=== PATIENT | female | born 1965 | race Caucasian/White ===

== ENCOUNTER 2023-11-14 20:35 | Emergency (ER) | payer MEDICAID ==
[~2023-11-14] VITALS: Ht 162.6 cm; Wt 98.1 kg
[2023-11-14] MEDS ORDERED: KETOROLAC TROMETH 30 MG/ML 1ML VIAL IM ONE (23:15)
[2023-11-14 23:31] VITALS: BP 169/88; PULSE 88; RESP 18; TEMP 97.9; O2SAT 98
[2023-11-14] MEDS: DexAMETHasone SOD PHOS 10MG/1ML VIAL INJ IM ONE (23:35)
[2023-11-14] MEDS: KETOROLAC TROMETH 30 MG/ML 1ML VIAL IM ONE (23:36)
== END 2023-11-14 23:37 | disposition home or self-care (01) ==
LOC: ER 20:35
DX: J06.9 Acute upper respiratory infection, unspecified (principal); I10 Essential (primary) hypertension; F17.210 Nicotine dependence, cigarettes, uncomplicated
CPT/HCPCS: 96372; 99284; J1100; J1885